=== PATIENT | male | born 1995 | race African-American/Black ===

== ENCOUNTER 2016-07-09 19:41 | Emergency (ER) | payer OTHER ==
[~2016-07-09] VITALS: Ht 177.8 cm; Wt 89.8 kg
[2016-07-09 19:43] VITALS: BP 93/83
== END 2016-07-10 00:02 | disposition left against medical advice (07) ==
LOC: M ED 23:57
DX: Z04.1 Encounter for examination and observation following transport accident (principal); Z53.29 Procedure and treatment not carried out because of patient's decision for other reasons

== ENCOUNTER → 2016-07-10 | Emergency (ER) | payer OTHER ==
[~2016-07-10] VITALS: Ht 175.3 cm; Wt 89.8 kg
[2016-07-10 18:55] VITALS: BP 121/61
--- NOTE | 2016-07-10 19:16 | REP ---
Right shoulder series: Three views: History: Pain after trauma. Findings: There is superior subluxation of the distal clavicle relative to the acromion process consistent with an AC joint separation injury. No fracture is seen. The glenohumeral articulation is normally aligned. The exam is otherwise unremarkable. Impression: Findings consistent with AC separation injury on the right side. No fracture seen. Signed by Asad Newman MD 07/10/2016 07:47 P
== END | disposition home or self-care (01) ==
LOC: M ED 16:32
DX: S43.101A Unspecified dislocation of right acromioclavicular joint, initial encounter (principal); V47.6XXA Car passenger injured in collision with fixed or stationary object in traffic accident, initial encounter; Y92.410 Unspecified street and highway as the place of occurrence of the external cause; Y93.89 Activity, other specified; Y99.8 Other external cause status